=== PATIENT | male | born 1990 | race Caucasian/White ===

== ENCOUNTER 2016-12-14 10:29 | Emergency (ER) | payer SELFPAY ==
[2016-12-14 10:48] VITALS: BP 144/80; PULSE 58; TEMP 97.9; BMI 32.5
[2016-12-14] MEDS ORDERED: methylPREDNISolone ACET (DEPO) 80 MG/1 ML VIAL IM ONE (10:56)
--- NOTE | 2016-12-14 10:59 | PDOC ---
History of Present Illness - General Chief Complaint: Rash Stated Complaint: RASH Time Seen by Provider: 12/14/16 10:55 History Source: Patient, Unavil. due to pt. cond. - History of Present Illness Initial Comments: 12/14/16 10:56 26 yo healthy male presents with poison anahi to his neck, mostly on the left side. It has been present for three or four days and is spreading to his chest and getting a little worse. Timing/Duration: 1 week, getting worse Severity: moderate Modifying Factors: improves with: other (Neosporin is not helping) Past History - Past Medical History Allergies/Adverse Reactions: Allergies Allergy/AdvReac Type Severity Reaction Status Date / Time No Known Allergies Allergy Verified 12/14/16 10:46 Home Medications: Ambulatory Orders NK [No Known Home Medication] 12/14/16 Other medical history: DENIES. - Psycho/Social/Smoking Cessation Hx Suicidal Ideation: No Smoking History: Never smoked Review of Systems - Review of Systems Constitutional: No: Symptoms Reported HEENTM: No: Symptoms Reported Respiratory: No: Symptoms reported Cardiac (ROS): No: Symptoms Reported ABD/GI: No: Symptoms Reported : No: Symptoms Reported Musculoskeletal: No: Symptoms Reported Integumentary: Yes: See HPI Neurological: No: Symptoms reported Psychiatric: No: Anxiety, Depression Endocrine: No: Symptoms Reported Hematologic/Lymphatic: No: Symptoms Reported All Other Systems: Reviewed and Negative *Physical Exam - Vital Signs Last Vital Signs Temp Pulse Resp BP Pulse Ox 97.9 F 58 L 19 144/80 99 12/14/16 10:46 12/14/16 10:46 12/14/16 10:46 12/14/16 10:46 12/14/16 10:46 - Physical Exam General Appearance: Yes: Nourished, Appropriately Dressed. No: Apparent Distress HEENT: positive: Normal ENT Inspection Neck: positive: Supple Respiratory/Chest: positive: Lungs Clear. negative: Chest Tender Cardiovascular: positive: Regular Rhythm, Regular Rate Gastrointestinal/Abdominal: positive: Normal Bowel Sounds Integumentary: positive: Other (Classic Rhus Dermatitis rash to left side of neck) *DC/Admit/Observation/Transfer Diagnosis at time of Disposition: Rhus dermatitis - Discharge Dispostion Disposition: HOME Condition at time of disposition: Unchanged/Unknown Admit: No - Patient Instructions Printed Discharge Instructions: DI for Poison Anahi Allergy, Poison Anahi, Poison [place], Poison [place] Additional Instructions: Jose Eduardo- Congratulations.... you will be twice as busy now.... This shot should dry this up for you. You can use calamine lotion or anahi dry. Follow up with your doctor and return to us if any problems. Juan- Dr. Derrick Le
[2016-12-14] MEDS ORDERED: methylPREDNISolone NA SUCC 125 MG/2 ML VIAL ONE (11:04)
== END 2016-12-14 11:40 | disposition home or self-care (01) ==
LOC: JER 10:29
PROC: 3E0233Z Introduction of Anti-inflammatory into Muscle, Percutaneous Approach (ICD-10-PCS; principal; 2016-12-14)
DX: L23.7 Allergic contact dermatitis due to plants, except food (principal)
CPT/HCPCS: 99281-25

== ENCOUNTER 2019-07-11 16:22 | Emergency (ER) | payer SELFPAY ==
--- NOTE | 2019-07-11 16:30 | PDOC ---
Rapid Medical Evaluation Time Seen by Provider: 07/11/19 16:26 Medical Evaluation: Allergies Allergy/AdvReac Type Severity Reaction Status Date / Time No Known Allergies Allergy Verified 12/14/16 10:46 07/11/19 16:26 CC: lower back pain s/p fall on stairs. Fell onto right hip on stairs 07/10. PE: No focal findings. Orders: xray, toradol Patient will proceed to ED for evaluation. 07/11/19 16:29 Discharge Disposition - Diagnosis Lumbar back pain - Referrals - Patient Instructions - Post Discharge Activity
[2019-07-11 16:32] VITALS: BP 139/96; PULSE 91; TEMP 98.4; BMI 34.1
[2019-07-11] MEDS ORDERED: KETOROLAC TROMETHAMINE 30 MG/1 ML VIAL IM ONE (16:32)
[2019-07-11] MEDS ORDERED: KETOROLAC TROMETHAMINE 30 MG/1 ML VIAL ONE (17:07)
[2019-07-11] MEDS ORDERED: METHOCARBAMOL 500 MG TABLET PO ONE (17:08)
[2019-07-11] MEDS ORDERED: METHOCARBAMOL 500 MG TABLET ONE (17:09)
--- NOTE | 2019-07-11 17:15 | PDOC ---
History of Present Illness - General Chief Complaint: Pain Stated Complaint: Pain, Acute Time Seen by Provider: 07/11/19 16:26 History Source: Patient Exam Limitations: Clinical Condition - History of Present Illness Initial Comments: 07/11/19 17:28 Patient with no significant past medical history present with complaint of pain to right lower back and gluteal area status post slip and fall going down a staircase yesterday. Patient reported he was going down a staircase and slipped down. Patient denies hitting head or loss of consciousness. Patient reported increased pain with ambulation and with movement to right lower back. Denies numbness or tingling sensation. Denies any other symptoms. Patient did not take anything for pain Occurred: reports: yesterday Pain Location: reports: back Method of Injury: Yes: fall Modifying Factors: improves with: None Loss of Consciousness: no loss of consciousness Associated Symptoms (Fall): denies symptoms Past History - Past Medical History Allergies/Adverse Reactions: Allergies Allergy/AdvReac Type Severity Reaction Status Date / Time No Known Allergies Allergy Verified 07/11/19 16:32 Home Medications: Ambulatory Orders Methocarbamol [Robaxin -] 500 mg PO BID #14 tablet 07/11/19 Naproxen 500 mg PO BID PRN #20 tablet 07/11/19 COPD: No - Psycho Social/Smoking Cessation Hx Smoking History: Never smoked Have you smoked in the past 12 months: No Information on smoking cessation initiated: No Hx Alcohol Use: Yes Drug/Substance Use Hx: No Review of Systems - Review of Systems Able to Perform ROS?: Yes Is the patient limited Chinese proficient: No Constitutional: No: Chills, Fever, Malaise HEENTM: No: Symptoms Reported, See HPI, Eye Pain, Blurred Vision, Tearing, Recent change in vision, Double Vision, Cataracts, Ear Pain, Ocular Prothesis, Ear Discharge, Nose Pain, Nose Congestion, Tinnitus, Nose Bleeding, Hearing Loss , Throat Pain, Throat Swelling, Mouth Pain, Dental Problems, Difficulty Swallowing, Mouth Swelling, Other Respiratory: No: Symptoms reported, See HPI, Cough, Orthopnea, Shortness of Breath, SOB with Exertion, SOB at Rest, Stridor, Wheezing, Productive cough, Hemoptysis, Other Cardiac (ROS): No: Symptoms Reported, See HPI, Chest Pain, Edema, Irregular Heart Rate, Lightheadedness, Palpitations, Syncope, Chest Tightness, Other ABD/GI: No: Symptoms Reported, Nausea, Vomiting : No: Symptoms Reported, Dysuria, Discharge, Frequency, Hematuria, Urgency Musculoskeletal: Yes: Symptoms Reported, See HPI, Back Pain Integumentary: No: Symptoms Reported Neurological: No: Symptoms reported, Numbness, Paresthesia, Tingling, Weakness All Other Systems: Reviewed and Negative *Physical Exam - Vital Signs Last Vital Signs Temp Pulse Resp BP Pulse Ox 98.4 F 91 H 19 139/96 100 07/11/19 16:28 07/11/19 16:28 07/11/19 16:28 07/11/19 16:28 07/11/19 16:28 - Physical Exam 07/11/19 17:12 GENERAL: Well developed, well nourished. Awake and alert in mild acute distress. PULMONARY: No evidence of respiratory distress. MUSCULOSKELETAL : moderate tenderness to palpate to right paravertebral muscle of lower lumbosacral spine of L4-S2. no midline tenderness. no radiculopathy. moderate tenderness to upper right gluteal region. no stepdown to right hip SKIN: Warm and dry. Normal capillary refill. No bruising or ecchymosis to right gluteal or hip. NEUROLOGICAL: Alert, awake, appropriate. No motor deficits in the lower extremities. Gait is normal with mild limp from pain PSYCHIATRIC: Cooperative. Good eye contact. Appropriate mood and affect. General Appearance: Yes: Nourished, Appropriately Dressed, Apparent Distress, Mild Distress ED Treatment Course - Medications Given in the ED: ED Medications Discontinued Medications Generic Name Dose Route Start Last Admin Trade Name Talatq PRN Reason Stop Dose Admin Ketorolac Tromethamine 30 mg 07/11/19 16:32 07/11/19 17:08 Toradol Injection - IM 07/11/19 16:33 30 mg ONCE ONE Administration Medical Decision Making - Medical Decision Making 07/11/19 17:30 Patient with no significant past medical history present with complaint of pain to right lower back and gluteal area status post slip and fall going down a staircase yesterday. Patient reported he was going down a staircase and slipped down. Patient denies hitting head or loss of consciousness. Patient reported increased pain with ambulation and with movement to right lower back. Denies numbness or tingling sensation. Denies any other symptoms. Patient did not take anything for pain Exam significant for moderate tenderness to right paravertebral muscle of lower lumbosacral spine of L4-S2 and right upper gluteal area. No skin bruise no ecchymosis. No radiculopathy. X-ray of hip and lumbosacral shows no acute fracture or dislocation. Patient symptoms likely hip and back contusion. Toradol 30 mg IM given for pain and Robaxin thousand milligrams p.o. given for spasm. Patient stable for discharge naproxen as needed for pain Robaxin for spasm with advised to do hot compresses with orthopedics follow-up Discharge - Discharge Information Problems reviewed: Yes Clinical Impression/Diagnosis: Lumbar back pain Condition: Stable Disposition: HOME - Admission No - Additional Discharge Information Prescriptions: Methocarbamol [Robaxin -] 500 mg PO BID #14 tablet Naproxen 500 mg PO BID PRN #20 tablet PRN Reason: Back Pain - Follow up/Referral Referrals: Asher Sequeira DO [Staff Physician] - - Patient Discharge Instructions Patient Printed Discharge Instructions: DI for Contusion Additional Instructions: X-ray of your hip and back shows no acute fracture or dislocation. Your symptoms likely from muscle contusion. Take prescribed medication as prescribed for pain. Apply heat to back and hip 2-3 times a day as needed for pain. Follow-up referred to orthopedics if no improvement in 4 days - Post Discharge Activity Work/Back to School Note: Back to Work
== END 2019-07-11 17:29 | disposition home or self-care (01) ==
LOC: JERFT 16:22
PROC: 3E0233Z Introduction of Anti-inflammatory into Muscle, Percutaneous Approach (ICD-10-PCS; principal; 2019-07-11)
DX: S30.0XXA Contusion of lower back and pelvis, initial encounter (principal); S70.01XA Contusion of right hip, initial encounter; W10.8XXA Fall (on) (from) other stairs and steps, initial encounter; Y93.89 Activity, other specified; Y92.89 Other specified places as the place of occurrence of the external cause; Y99.8 Other external cause status
CPT/HCPCS: 72100-TC-FY; 72170-TC-FY; 99284-25